=== PATIENT | female | born 1985 | race Caucasian/White ===

== ENCOUNTER 2016-10-28 13:13 | Emergency (ER) | payer BC, OTHER ==
[2016-10-28 15:03] VITALS: BP 135/83
--- NOTE | 2016-10-28 15:52 | UC ---
Throat Pain/Nasal [place] HPI - HPI Summary HPI Summary: Pt presents with c/o nasal congestion wheezing, cough, sore throat, sinus pressure and tenderness X 10 days. - History of Current Complaint Chief Complaint: UCRespiratory Stated Complaint: HEAD & CHEST CONGESTION Time Seen by Provider: 10/28/16 15:09 Hx Obtained From: Patient Hx Last Menstrual Period: unknown, IUD ?: No Onset/Duration: Gradual Onset, Lasting Days - 10, Still Present, Worse Since - onset Severity: Moderate Pain Intensity: 0 Pain Scale Used: 0-10 Numeric Cough: Productive - green/yellow Associated Signs & Symptoms: Positive: Wheezing, Sinus Discomfort Related History: Seasonal Allergies - Allergies/Home Medications Allergies/Adverse Reactions: Allergies Allergy/AdvReac Type Severity Reaction Status Date / Time No Known Allergies Allergy Verified 10/28/16 15:02 PMH/Surg Hx/FS Hx/Imm Hx Previously Healthy: Yes - seasonal allergie Respiratory History: Asthma - Surgical History Surgical History: Yes Surgery Procedure, Year, and Place: adenoidectomy - Family History Known Family History: Positive: Hypertension, Diabetes Negative: Cardiac Disease - Social History Occupation: Employed Full-time Lives: With Family Alcohol Use: None Substance Use Type: None Smoking Status (MU): Heavy Every Day Tobacco Smoker Type: Cigarettes Amount Used/How Often: 1/2 ppd Length of Time of Smoking/Using Tobacco: SINCE 2008 Have You Smoked in the Last Year: Yes Review of Systems Constitutional: Fatigue Skin: Negative Eyes: Negative ENT: Sore Throat, Sinus Congestion, Other - nasal congestion Respiratory: Cough, Other - wheezing Cardiovascular: Negative Gastrointestinal: Negative Genitourinary: Negative Motor: Negative Neurovascular: Negative Musculoskeletal: Negative Neurological: Negative Psychological: Negative All Other Systems Reviewed And Are Negative: Yes Physical Exam Triage Information Reviewed: Yes Appearance: Ill-Appearing Vital Signs: Initial Vital Signs Temp 98.8 F 10/28/16 14:59 Pulse 109 10/28/16 14:59 Resp 17 10/28/16 14:59 BP 135/83 10/28/16 14:59 Pulse Ox 98 10/28/16 14:59 Vital Signs Reviewed: Yes Eye Exam: Normal ENT Exam: Other ENT: Positive: Nasal congestion, Other: - maxilalry sinus tenderness Dental Exam: Normal Neck exam: Normal Respiratory Exam: Other Respiratory: Positive: Wheezing Cardiovascular Exam: Normal Musculoskeletal Exam: Normal Neurological Exam: Normal Psychological Exam: Normal Skin Exam: Normal Throat Pain/Nasal Course/Dx - Differential Dx/Diagnosis Differential Diagnosis/HQI/PQRI: Influenza, Sinusitis, Other Provider Diagnoses: sinusitis. wheezing Discharge - Discharge Plan Condition: Stable Disposition: HOME Prescriptions: Albuterol 2.5MG/3ML (0.083%)* [Ventolin 2.5 MG/3 ML NEB.KIAN*] 1 dose PO Q4H PRN #1 box PRN Reason: Cough Amoxicillin PO (*) [Amoxicillin 875 MG (*)] 875 mg PO BID #20 tab Fexofenadine-Pseudoephedrine [Ani-D 24 Hour Allergy] 1 tab PO DAILY #10 tab predniSONE TAB* [Deltasone TAB*] 30 mg PO DAILY #9 tab Patient Education Materials: Sinusitis (ED), Allergies (ED) Referrals: Pat Avendano MD [Primary Care Provider] - If Needed
== END 2016-10-28 15:45 | disposition home or self-care (01) ==
LOC: UCCORT 13:13
DX: J32.9 Chronic sinusitis, unspecified (principal); R53.83 Other fatigue; J45.909 Unspecified asthma, uncomplicated; F17.210 Nicotine dependence, cigarettes, uncomplicated
CPT/HCPCS: 99212; G0463

== ENCOUNTER 2016-12-10 11:41 | Emergency (ER) | payer OTHER ==
[2016-12-10 12:05] VITALS: BP 130/73
--- NOTE | 2016-12-10 12:23 | UC ---
Respiratory Complaint HPI - HPI Summary HPI Summary: cough x 2 days + nasal congestion , pnd , fever, chills - History of Current Complaint Chief Complaint: UCRespiratory Stated Complaint: RUNNY NOSE COUGH CONGESTION Time Seen by Provider: 12/10/16 11:47 Hx Obtained From: Patient Hx Last Menstrual Period: HAS A IUD, DOES NOT HAVE REG PERIODS ?: No Onset/Duration: Gradual Onset, Lasting Days - 2, Still Present Timing: Constant Severity Initially: Moderate Severity Currently: Moderate Character: Cough: Productive - green Aggravating Factors: Exertion, Deep Breaths Alleviating Factors: Nothing Associated Signs And Symptoms: Positive: Fever, Chills, URI, Nasal Congestion. Negative: Dyspnea, Pleuritic Chest Pain, Wheezing - Allergies/Home Medications Allergies/Adverse Reactions: Allergies Allergy/AdvReac Type Severity Reaction Status Date / Time No Known Allergies Allergy Verified 12/10/16 12:00 PMH/Surg Hx/FS Hx/Imm Hx Respiratory History: Asthma - Surgical History Surgical History: Yes Surgery Procedure, Year, and Place: adenoidectomy - Family History Known Family History: Positive: Hypertension, Diabetes Negative: Cardiac Disease - Social History Alcohol Use: None Substance Use Type: None Smoking Status (MU): Heavy Every Day Tobacco Smoker Type: Cigarettes Amount Used/How Often: 1/2 ppd Length of Time of Smoking/Using Tobacco: SINCE 2008 Have You Smoked in the Last Year: Yes Household Exposure Type: Cigarettes Review of Systems Constitutional: Fever, Chills, Fatigue Skin: Negative Eyes: Negative ENT: Nasal Discharge Respiratory: Cough Cardiovascular: Negative Gastrointestinal: Negative Genitourinary: Negative Is Patient Immunocompromised?: No All Other Systems Reviewed And Are Negative: Yes Physical Exam Triage Information Reviewed: Yes Appearance: Well-Appearing, No Pain Distress, Well-Nourished Vital Signs: Initial Vital Signs Temp 97.2 F 12/10/16 12:02 Pulse 84 12/10/16 12:02 Resp 16 12/10/16 12:02 BP 130/73 12/10/16 12:02 Pulse Ox 98 12/10/16 12:02 Vital Signs Reviewed: Yes Eyes: Positive: Conjunctiva Clear ENT: Positive: Normal ENT inspection, Hearing grossly normal, Pharyngeal erythema, Nasal congestion, Nasal drainage, TMs normal Neck exam: Normal Neck: Positive: Supple, Nontender, No Lymphadenopathy Respiratory: Positive: Chest non-tender, Lungs clear, Normal breath sounds Cardiovascular: Positive: RRR, No Murmur, Pulses Normal Musculoskeletal Exam: Normal Skin Exam: Normal UC Diagnostic Evaluation - Laboratory O2 Sat by Pulse Oximetry: 98 Respiratory Course/Dx - Differential Dx/Diagnosis Provider Diagnoses: uri Discharge - Discharge Plan Condition: Stable Disposition: HOME Patient Education Materials: Upper Respiratory Infection (ED) Referrals: Pat Avendano MD [Primary Care Provider] - If Needed
== END 2016-12-10 12:35 | disposition home or self-care (01) ==
LOC: UCCORT 11:41
DX: J06.9 Acute upper respiratory infection, unspecified (principal); J45.909 Unspecified asthma, uncomplicated; F17.210 Nicotine dependence, cigarettes, uncomplicated
CPT/HCPCS: 99211; G0463

== ENCOUNTER 2017-01-16 18:21 | Emergency (ER) | payer OTHER ==
[2017-01-16 19:19] VITALS: BP 141/88
--- NOTE | 2017-01-16 19:41 | UC ---
UC Dental HPI - HPI Summary HPI Summary: DENTAL PAIN LEFT LOWER BACK MOLAR X 1 DAY + BROKEN TOOTH, + SWOLLEN GUMS LEFT LOWER BACK NO FEVER , NO CHILLS - History of Current Complaint Chief Complaint: UCDentalProblem Stated Complaint: JAW PAIN Time Seen by Provider: 01/16/17 19:20 Hx Obtained From: Patient Hx Last Menstrual Period: HAS AN IUD, DOES NOT HAVE REG PERIODS ?: No Onset/Duration: Gradual Onset, Lasting Days - 1, Still Present Severity: Moderate Aggravating Factor(s): Cold, Chewing Alleviating Factor(s): OTC Meds - TYLENOL Related History: Swelling Dental: 1 - PAIN / ABSCESS - Allergies/Home Medications Allergies/Adverse Reactions: Allergies Allergy/AdvReac Type Severity Reaction Status Date / Time No Known Allergies Allergy Verified 01/16/17 19:11 Home Medications: Home Medications Acetaminophen [Eq Pain Reliever] 1,000 mg PO PRN 01/16/17 [History] Ibuprofen [Ibuprofen 200 MG] 800 mg PO PRN 01/16/17 [History] PMH/Surg Hx/FS Hx/Imm Hx Respiratory History: Asthma - Surgical History Surgical History: Yes Surgery Procedure, Year, and Place: adenoidectomy - Family History Known Family History: Positive: Hypertension, Diabetes Negative: Cardiac Disease - Social History Alcohol Use: None Substance Use Type: None Smoking Status (MU): Heavy Every Day Tobacco Smoker Type: Cigarettes Amount Used/How Often: 1/2 ppd Length of Time of Smoking/Using Tobacco: SINCE 2008 Have You Smoked in the Last Year: Yes Household Exposure Type: Cigarettes Review of Systems Constitutional: Negative Skin: Negative Eyes: Negative ENT: Dental Pain Respiratory: Negative Cardiovascular: Negative Is Patient Immunocompromised?: No All Other Systems Reviewed And Are Negative: Yes Physical Exam Triage Information Reviewed: Yes Appearance: Well-Appearing, No Pain Distress, Well-Nourished Vital Signs: Initial Vital Signs Temp 98 F 01/16/17 19:14 Pulse 79 01/16/17 19:14 Resp 20 01/16/17 19:14 BP 141/88 01/16/17 19:14 Pulse Ox 97 01/16/17 19:14 Vital Signs Reviewed: Yes Eyes: Positive: Conjunctiva Clear ENT: Positive: Normal ENT inspection, Hearing grossly normal, Pharynx normal Dental: Positive: Percussion Tenderness @ - 19, Gross Decay/Caries @ - 19, Dental Fracture @ - 19, Abscess @ - 19 Neck: Positive: Supple, Nontender, No Lymphadenopathy Respiratory Exam: Normal Respiratory: Positive: Chest non-tender, Lungs clear, Normal breath sounds Dental Complaint Course/Dx - Differential Dx/Diagnosis Provider Diagnoses: DENTAL ABSCESS Discharge - Discharge Plan Condition: Stable Disposition: HOME Prescriptions: Acetaminop/Codeine 30 MG TAB* [Tylenol/Codeine 30 MG TAB*] 1 - 2 tab PO Q6H PRN #20 tab MDD 8 tabs PRN Reason: Pain Amoxicillin PO (*) [Amoxicillin 875 MG (*)] 875 mg PO BID #20 tab Patient Education Materials: Dental Abscess (ED) Referrals: Pat Avendano MD [Primary Care Provider] - Additional Instructions: follow up with your dentist in 5 days
== END 2017-01-16 19:51 | disposition home or self-care (01) ==
LOC: UCCORT 18:21
DX: K04.7 Periapical abscess without sinus (principal); J45.909 Unspecified asthma, uncomplicated; F17.210 Nicotine dependence, cigarettes, uncomplicated
CPT/HCPCS: 99212; G0463